=== PATIENT | female | born 1965 | race Caucasian/White ===

== ENCOUNTER 2016-11-21 20:05 | Observation (INO) ==
--- NOTE | 2016-11-21 20:15 | Emergency Department Note ---
Disposition Clinical Impression: Pyelonephritis, Failure of outpatient treatment Abdominal pain Qualifiers: Abdominal location: epigastric Qualified Code(s): R10.13 - Epigastric pain Nausea & vomiting Qualifiers: Vomiting type: unspecified Vomiting Intractability: non-intractable Qualified Code(s): R11.2 - Nausea with vomiting, unspecified Disposition: Admitted As Inpatient Condition: Good Referrals: NO,PCP [Primary Care Provider] - Forms: Work/School Release, ED Satisfaction Letter Nausea/Vomiting/Diarrhea HPI - General Chief complaint: ED Abdominal Pain Stated complaint: N/V/D Time Seen by Provider: 11/21/16 20:10 Source: patient, family Mode of arrival: private vehicle Limitations: no limitations Nursing Notes Reviewed: Yes Vital Signs Reviewed: Yes - History of Present Illness HPI Narrative: The patient states that she started feeling poorly all week ago on Wednesday. She is having some nausea and vomiting some difficulty with urination for which she went to [facility] urgent care on Wednesday. They referred her to [facility] emergency department where she had lab work, urinalysis and a CT abdomen with contrast performed. They informed her that her blood sugar was up and that she had a urinary tract infection. She is told the CT abdomen was normal. She has been taking Keflex but states that she is "not getting any better". She is continuing with nausea and vomiting and now has diarrhea that she thinks is because of the Keflex. She has not had a bladder mucus in emesis or stool. She continues with pain that is across the mid epigastric region without radiation. She also has been having pain though in the right flank for the last week. She has a feeling of fevers and chills but no chest pain, cough or shortness of breath. She notes the pain in her abdomen is worse if she does cough or when she vomits. She has not checked her blood sugar since being in the emergency department on Wednesday. She denies any history of kidney stone and the CT abdomen report in 3 days ago was negative for this. She relates she has already had a hysterectomy and an appendectomy. Pt Subjective Complaint: nausea, vomiting, diarrhea, abdominal pain Onset (ago): day(s) Description of emesis: food contents Description of Diarrhea: water Associated Abdominal Pain: Yes If pain, Location of pain: epigastric Severity: moderate Quality: aching, dull Consistency: constant Improves with: nothing Worsens with: eating, vomiting Associated symptoms: Reports: loss of appetite, malaise, nausea/vomiting, weakness. Denies: myalgias, chest pain, cough, diaphoresis, fever/chills, headaches, rash, dysuria, shortness of breath, syncope - Related Data Previous Rx's Medication Instructions Recorded Ibuprofen [Motrin] 600 mg PO Q6HR PRN #20 tab 12/02/15 cephALEXin [Keflex] 500 mg PO QID #40 capsule 12/02/15 Allergies Allergy/AdvReac Type Severity Reaction Status Date / Time hydrocodone [From Vicodin] AdvReac Hallucinati Verified 11/21/16 20:08 ng All systems ED: reviewed and negative except as stated. Past Medical History - Past Medical History Attestation: Yes The following information was validated with the patient. Source: patient, old records reviewed, nursing notes reviewed Medical history: Reports: diabetes Surgical history: Reports: appendectomy, cataract, hysterectomy, other ( Tonsillectomy) Psychiatric history: Reports: no psych history PICKER PACKER history: Reports: no PICKER PACKER history - Social History Smoking Status: Current every day smoker Smokeless Tobacco Status: No Alcohol use: Reports: rarely Drug use: Reports: none Physical Exam - General Limitations: no limitations General appearance: alert, in no apparent distress - Head Head exam: atraumatic, normocephalic, normal inspection - Eye Eye exam: Present: normal appearance, PERRL, EOMI - ENT ENT exam: normal exam, normal oropharynx, mucous membranes moist - Neck Neck exam: Present: normal inspection, full ROM, trachea midline - Chest Chest inspection: Present: normal inspection, symmetric chest wall rise - Respiratory Respiratory exam: Present: normal lung sounds bilaterally. Absent: respiratory distress, wheezes, prolonged expiratory phase - Cardiovascular Cardiovascular exam: Present: regular rate, normal rhythm, normal heart sounds. Absent: diastolic murmur - Abdominal Exam Abdominal exam: Present: soft, normal bowel sounds. Absent: distention, guarding, rebound, rigidity, Crespo's sign, tenderness at McBurney's Point, hernia Abdominal tenderness: Present: epigastrium, moderate - Extremities Exam Extremities exam: Present: normal inspection, full ROM, normal capillary refill. Absent: tenderness, pedal edema - Expanded Lower Extremity Exam Neurovascular/Tendon exam: Present: normal capillary refill. Absent: motor deficit, sensory deficit, tendon deficit Gait: observed and normal - Back Exam Back exam: Present: normal inspection, full ROM. Absent: tenderness, CVA tenderness (R), CVA tenderness (L) - Neurological Exam Neurological exam: Present: alert, oriented X3, normal gait. Absent: motor sensory deficit, reflexes normal - Psychiatric Psychiatric exam: Present: normal affect, normal mood - Skin Skin exam: Present: warm, dry, intact, normal color. Absent: rash, diaphoresis , pallor Course Course Narrative: 2049: Given the patient's persistent, significant UTI, I have spoken with [facility] emergency department to request records and the culture and sensitivities from her urine. The patient has signed for these records and we are awaiting them at this time. An appropriate antibiotic will then be to be selected and she will likely need continuation of IV fluids and antibiotics inpatient for a day or 2. 2119: Reports are reviewed from [facility]. Her CT did demonstrate "multiple wedge-shaped and rounded areas of poor enhancement within the right renal cortex. Most commonly due to underlying pyelonephritis." Her urine cultured for greater than 100,000 Escherichia coli that was pansensitive to the antibiotic panel. 2124: Care has been discussed with Dr. Keith Summers and verbal orders have been obtained for her observation to the hospital. Vital Signs Temperature 99.9 F H 11/21/16 20:12 Pulse Rate 75 11/21/16 20:12 Respiratory Rate 20 11/21/16 20:12 Blood Pressure 136/74 11/21/16 20:12 O2 Sat by Pulse Oximetry 99 11/21/16 20:12 Temperature 99.9 F H 11/21/16 20:12 Pulse Rate 68 11/21/16 21:06 Respiratory Rate 18 11/21/16 21:06 Blood Pressure 131/81 11/21/16 21:06 O2 Sat by Pulse Oximetry 99 11/21/16 21:06 Oxygen Delivery Oxygen Delivery Room Air Nausea/Vomiting/Diarrhea - Differential Diagnosis Likely: gastroenteritis (Pyelonephritis), dehydration - Lab Data Lab results reviewed: Yes I reviewed the patient's lab results. Result diagrams: 11/21/16 20:33 11/21/16 20:33 Lab Results 11/21/16 11/21/16 11/21/16 Range/Units 20:29 20:33 20:33 WBC 13.6 H (4.3-11.1) K/mcL RBC 4.13 (3.82-4.97) M/mcL Hgb 12.7 (11.5-15.4) g/dL Hct 36.3 (35.3-44.9) % MCV 87.9 (83.0-100.0) fL MCH 30.8 (28.0-33.3) pg MCHC 35.0 (31.6-35.5) g/dL RDW 12.7 (11.5-14.5) % Plt Count 281 (140-400) K/mcL MPV 10.0 (9.4-12.4) fL Immature Gran % 3.5 (0-4) % Seg Neutrophils % 73.9 % Lymphocytes % 13.0 % Monocytes % 8.8 % Eosinophils % 0.4 % Basophils % 0.4 % Neutrophils # 10.1 H (1.6-8.9) K/mcL Lymphocytes # 1.8 (0.6-4.6) K/mcL Monocytes # 1.2 (0.0-1.3) K/mcL Eosinophils # 0.1 (0.0-0.6) K/mcL Basophils # 0.1 (0.0-0.2) K/mcL Platelet Estimate Normal (Normal) Sodium 138 (136-145) mEq/L Potassium 3.4 L (3.5-4.5) mEq/L Chloride 105 (98-109) mEq/L Carbon Dioxide 21 (19-29) mEq/L BUN 13 (7-20) mg/dL Creatinine 0.72 (0.57-1.11) mg/dL Est GFR ( Amer) > 60 (> 60) Est GFR (Non-Af Amer) > 60 (> 60) BUN/Creatinine Ratio 18 (6-26) Glucose 246 H (70-99) mg/dL Calculated Osmolality 294 (280-300) Calcium 9.2 (8.6-10.8) mg/dL Total Bilirubin 0.5 (0.2-1.2) mg/dL Direct Bilirubin 0.2 (0.0-0.5) mg/dL Indirect Bilirubin 0.3 (0.0-1.2) mg/dL AST 11 (5-34) Units/L ALT 16 (0-55) Units/L Alkaline Phosphatase 106 (38-126) Units/L Serum Total Protein 6.5 (6.0-8.3) g/dL Albumin 2.1 L (3.5-5.0) g/dL Globulin 4.4 H (2.4-3.5) g/dL Albumin/Globulin Ratio 0.5 L (1.1-2.2) Amylase 25 (25-125) Units/L Lipase 15 (8-78) Units/L Urine Color Yellow (Yellow) Urine Clarity Cloudy A (Clear) Urine pH 6.0 (5.0-8.0) pH Units Ur Specific [place] 1.015 (1.010-1.025) Urine Protein 30 H (Neg-Trace) mg/dL Urine Glucose (UA) >=1000 H (Normal) mg/dL Urine Ketones Trace H (Negative) mg/dL Urine Blood Large H (Negative) Urine Nitrite Negative (Negative) Urine Bilirubin Negative (Negative) Urine Urobilinogen 2.0 H (Normal) mg/dL Ur Leukocyte Esterase Small H (Negative) Urine Microscopic RBC 5-15 H (0-3) per hpf Urine Microscopic WBC 50-100 H (0-3) per hpf Ur Squamous Epith Cells Few (None-Few) per lpf Urine Bacteria Few (None-Few) per hpf Urine Yeast Few H (None Seen) per hpf Ur Culture Indicated? YES A (NO)
[2016-11-21] MEDS ORDERED: Ondansetron 4 MG/2 ML VIAL IVP ONE (20:18)
[2016-11-21] MEDS ORDERED: 0.9 % Sodium Chloride 1,000 ML IVC ONE (20:19)
[2016-11-21 20:34] LABS: Bilirubin,Urine Negative (Negative); Blood,Urine Large (Negative); Clarity,Urine Cloudy (Clear); Color,Urine Yellow (Yellow); Glucose,Urine (UA) >=1000 mg/dL (Normal); Ketones,Urine Trace mg/dL (Negative); Leukocyte Esterase,Urine Small (Negative); Nitrite,Urine Negative (Negative); Protein,Urine 30 mg/dL (Neg-Trace); Specific Gravity,Urine 1.015 (1.010-1.025)
[2016-11-21 20:42] LABS: Basophils # 0.1 K/mcL (0.0-0.2); Basophils % 0.4 %; Eosinophils # 0.1 K/mcL (0.0-0.6); Eosinophils % 0.4 %; Hematocrit 36.3 % (35.3-44.9); Hemoglobin 12.7 g/dL (11.5-15.4); Immature Granulocytes % 3.5 % (0-4); Lymphocytes # 1.8 K/mcL (0.6-4.6); Mean Corpuscular Hemoglobin 30.8 pg (28.0-33.3); Mean Corpuscular Volume 87.9 fL (83.0-100.0); Monocytes # 1.2 K/mcL (0.0-1.3); Monocytes % 8.8 %; Platelet Count 281 K/mcL (140-400); Red Blood Count 4.13 M/mcL (3.82-4.97); Red Cell Distribution Width 12.7 % (11.5-14.5); Segmented Neutrophils % 73.9 %
[2016-11-21 20:42] LABS: Squamous Epithelial Cell,Urine Few per lpf (None-Few); WBC,Urine 50-100 per hpf (0-3)
[2016-11-21 20:43] LABS: Bacteria,Urine Few per hpf (None-Few); Yeast,Urine Few per hpf (None Seen)
[2016-11-21 20:55] LABS: Neutrophils # 10.1 K/mcL (1.6-8.9)
[2016-11-21 20:58] LABS: Platelet Estimate Normal (Normal)
[2016-11-21 21:00] LABS: Alanine Aminotransferase 16 Units/L (0-55); Albumin 2.1 g/dL (3.5-5.0); Albumin/Globulin Ratio 0.5 (1.1-2.2); Alkaline Phosphatase 106 Units/L (38-126); Amylase 25 Units/L (25-125); Aspartate Amino Transferase 11 Units/L (5-34); BUN/Creatinine Ratio 18 (6-26); Bilirubin,Direct 0.2 mg/dL (0.0-0.5); Bilirubin,Indirect 0.3 mg/dL (0.0-1.2); Bilirubin,Total 0.5 mg/dL (0.2-1.2); Blood Urea Nitrogen 13 mg/dL (7-20); Calcium 9.2 mg/dL (8.6-10.8); Carbon Dioxide 21 mEq/L (19-29); Chloride 105 mEq/L (98-109); Globulin 4.4 g/dL (2.4-3.5); Glucose 246 mg/dL (70-99); Lipase 15 Units/L (8-78); Osmolality,Calculated 294 (280-300); Potassium 3.4 mEq/L (3.5-4.5); Sodium 138 mEq/L (136-145); Total Protein 6.5 g/dL (6.0-8.3); eGFR For African Americans > 60 (> 60); eGFR For Non-African Americans > 60 (> 60)
[2016-11-21] MEDS ORDERED: Naloxone 0.4 MG/ML INJ IVP PRN (22:14)
[2016-11-21] MEDS ORDERED: MOM Conc 10 ML UD.LIQ PO PRN (22:14)
[2016-11-21] MEDS ORDERED: Acetaminophen 325 MG TABLET PO PRN (22:14)
[2016-11-21] MEDS ORDERED: Ondansetron 4 MG/2 ML VIAL IVP PRN (22:14)
[2016-11-21] MEDS ORDERED: *HR* HYDROmorphone (PF) 1 MG/ML SYRINGE IVP PRN (22:14)
[2016-11-21] MEDS ORDERED: D5% in Water 1,000 ML IVC PRN (23:20)
[2016-11-21] MEDS ORDERED: Dextrose Gel 15 GM PO PRN ×2 (23:20)
[2016-11-21] MEDS ORDERED: *HR* Dextrose 50 % in Water (Syg) 50 ML SYRINGE IVP PRN (23:20)
[2016-11-21] MEDS: 0.9 % Sodium Chloride 1,000 ML IVC SCH (23:35)
[2016-11-22 05:22] LABS: Basophils # 0.1 K/mcL (0.0-0.2); Basophils % 0.4 %; Eosinophils # 0.1 K/mcL (0.0-0.6); Eosinophils % 0.7 %; Hemoglobin 11.9 g/dL (11.5-15.4); Immature Granulocytes % 2.6 % (0-4); Lymphocytes # 1.7 K/mcL (0.6-4.6); Lymphocytes % 12.7 %; Mean Corpuscular Hemoglobin 30.5 pg (28.0-33.3); Mean Corpuscular Volume 89.7 fL (83.0-100.0); Mean Platelet Volume 10.3 fL (9.4-12.4); Monocytes # 1.1 K/mcL (0.0-1.3); Monocytes % 8.2 %; Platelet Count 283 K/mcL (140-400); Red Cell Distribution Width 12.9 % (11.5-14.5); Segmented Neutrophils % 75.4 %
[2016-11-22 05:46] LABS: BUN/Creatinine Ratio 15 (6-26); Blood Urea Nitrogen 12 mg/dL (7-20); Calcium 8.8 mg/dL (8.6-10.8); Carbon Dioxide 22 mEq/L (19-29); Chloride 104 mEq/L (98-109); Glucose 407 mg/dL (70-99); Osmolality,Calculated 301 (280-300); Phosphorous 2.9 mg/dL (2.3-4.7); Potassium 3.3 mEq/L (3.5-4.5); Sodium 137 mEq/L (136-145); eGFR For African Americans > 60 (> 60); eGFR For Non-African Americans > 60 (> 60)
[2016-11-22 06:03] LABS: Albumin 1.9 g/dL (3.5-5.0)
[2016-11-22 06:09] LABS: Platelet Estimate Normal (Normal)
[2016-11-22] MEDS: Insulin LISPRO 300 UNITS/3 ML VIAL SQ SCH ×4 (07:42→22:44)
--- NOTE | 2016-11-22 09:01 | Internal Med History&Physical ---
Date of Encounter: 11/22/16 Time of Encounter: 08:58 Assessment and Plan (1) Pyelonephritis due to Escherichia coli Current visit: Yes Status: Acute E. coli pyelonephritis documented by outside CT scan and urine cultures obtained at [facility] ER. Pt remains moderately symptomatic and unsuitable for outpatient management at this time. Will continue IV fluids, anti-emetics and IV ceftriaxone at this time. Urine culture is pending. (2) Type II diabetes mellitus Current visit: Yes Status: Acute Poor control at baseline. Will avoid MENDEZ and metformin for now given nausea, vomiting and poor po intake. Will schedule on basal insulin and continue sliding scale coverage. Will order hgbA1c. Pt will need to arrange PCP at discharge for ongoing treatment of her uncontrolled DM. Qualifiers: Diabetes mellitus complication status: without complication Diabetes mellitus fci insulin use: without terminal gauger use Qualified Code(s): E11.9 - Type 2 diabetes mellitus without complications Internal Medicine - H&P: HPI Chief complaint: Nausea, abdominal pain Admitted From: Emergency Dept Plans for Post Hospital Care: Home History of present illness: Ms. Reeves is a 51 year old female with PMH significant for uncontrolled type II diabetes mellitus and currently with no PCP that presented to ER with 1 week history of abdominal pain and nausea. Pt was seen at [facility] urgent care and then [facility] urgent care 4 days ago and placed on cephalexin for a jin-sensitive E. Coli pyelonephritis documented by CT scan and urine culture. Pt notes continued nausea and R flank pain without any improvement in symptoms. She then presented to ER for re-evaluation. She was treated with IV ceftriaxone and IV fluids. Urine sent for culture. Pt then admitted for ongoing treatment of pyelonephritis. Upon evaluation this morning, pt continues to report abdominal and right flank pain with intermittent chills, nausea and vomiting. She is having trouble keeping down po. She feels fatigued and tired. FSBG has been elevated throughout the night. Past Med Surg Social Fam HX - Past Medical History Medical history: diabetes Psychiatric history: no psych history - Past Surgical History Surgical History: appendectomy, cataract, hysterectomy, other - Social History Smoking Status: Current every day smoker Smokeless Tobacco Status: No Alcohol use: rarely Drug use: none Internal Medicine - H&P: Meds Ibuprofen [Motrin] 600 mg PO Q6HR PRN #20 tab 12/02/15 [Rx] cephALEXin [Keflex] 500 mg PO QID #40 capsule 12/02/15 [Rx] Allergies hydrocodone [From Vicodin] Adverse Reaction (Verified 11/21/16 20:08) Hallucinating All Systems PM: A 10-system review of systems was performed and is negative for pertinent findings except as documented above in the HPI. - Constitutional Vitals: Temp Pulse Resp BP Pulse Ox 98.8 F 72 16 136/74 97 11/22/16 06:18 11/22/16 06:18 11/22/16 06:18 11/22/16 06:18 11/22/16 06:18 Exam: Gen: Lying in bed, NAD HEENT: NC, AT Neck: Trachea midline, no mass Pulm: No respiratory distress, CTAB CV: Normal S1 and S2, RRR Abdomen: Soft, ND, + generalized tenderness throughout without rebound or guarding, + R CVA tenderness Ext: No C/C/E Neuro: No appreciable motor/sensor deficits Skin: Warm and dry, no rash Psych: A&Ox3 Internal Med - H&P Results - Labs CBC & Chem 7: 11/22/16 05:00 11/22/16 05:00 Labs: Short CBC 11/22/16 Range/Units 05:00 WBC 13.2 H (4.3-11.1) K/mcL Hgb 11.9 (11.5-15.4) g/dL Hct 35.0 L (35.3-44.9) % Plt Count 283 (140-400) K/mcL Neutrophils # 10.0 H (1.6-8.9) K/mcL BMP 11/22/16 05:00 Sodium 137 Potassium 3.3 L Chloride 104 Carbon Dioxide 22 BUN 12 Creatinine 0.79 Glucose 407 H Calcium 8.8 Liver Function 11/22/16 Range/Units 05:00 Albumin 1.9 L (3.5-5.0) g/dL
[2016-11-22] MEDS ORDERED: Insulin NPH 100 UNIT/ML (x5UNIT) SQ ONE (09:16)
[2016-11-22] MEDS: 0.9 % Sodium Chloride 1,000 ML IVC SCH ×2 (09:41→18:23)
[2016-11-22] MEDS: *HR* Morphine 2 MG/ML SYRINGE IVP PRN ×4 (09:43→22:43)
[2016-11-22] MEDS ORDERED: Ondansetron 4 MG/2 ML VIAL IVP SCH (16:00)
[2016-11-22] MEDS: Ondansetron 4 MG/2 ML VIAL IVP PRN (16:11)
[2016-11-22] MEDS: Lactobacillus 1 EACH CAP.SPRINK PO SCH (22:39)
[2016-11-22] MEDS: Insulin DETEMIR 100 UNIT/ML X5UNITS SQ SCH (22:40)
[2016-11-23] MEDS: Ondansetron 4 MG/2 ML VIAL IVP PRN (05:03)
[2016-11-23] MEDS: 0.9 % Sodium Chloride 1,000 ML IVC SCH ×2 (05:07→12:40)
[2016-11-23 06:42] LABS: Basophils % 0.2 %; Eosinophils # 0.1 K/mcL (0.0-0.6); Eosinophils % 0.8 %; Hematocrit 31.8 % (35.3-44.9); Hemoglobin 10.7 g/dL (11.5-15.4); Immature Granulocytes % 2.7 % (0-4); Lymphocytes # 1.6 K/mcL (0.6-4.6); Lymphocytes % 12.1 %; Mean Corpuscular HGB Conc 33.6 g/dL (31.6-35.5); Mean Corpuscular Hemoglobin 30.6 pg (28.0-33.3); Mean Corpuscular Volume 90.9 fL (83.0-100.0); Mean Platelet Volume 9.9 fL (9.4-12.4); Monocytes # 0.9 K/mcL (0.0-1.3); Monocytes % 6.8 %; Neutrophils # 10.1 K/mcL (1.6-8.9); Platelet Count 322 K/mcL (140-400); Red Cell Distribution Width 13.1 % (11.5-14.5); Segmented Neutrophils % 77.4 %
[2016-11-23 06:59] LABS: BUN/Creatinine Ratio 13 (6-26); Blood Urea Nitrogen 9 mg/dL (7-20); Calcium 8.4 mg/dL (8.6-10.8); Carbon Dioxide 21 mEq/L (19-29); Chloride 109 mEq/L (98-109); Glucose 195 mg/dL (70-99); Osmolality,Calculated 296 (280-300); Phosphorous 2.5 mg/dL (2.3-4.7); Potassium 3.3 mEq/L (3.5-4.5); Sodium 141 mEq/L (136-145); eGFR For African Americans > 60 (> 60); eGFR For Non-African Americans > 60 (> 60)
[2016-11-23 07:03] LABS: Albumin 1.7 g/dL (3.5-5.0)
[2016-11-23] MEDS: Insulin LISPRO 300 UNITS/3 ML VIAL SQ SCH ×3 (07:39→16:54)
[2016-11-23] MEDS: *HR* Morphine 2 MG/ML SYRINGE IVP PRN ×3 (07:44→21:22)
[2016-11-23 09:49] LABS: Hemoglobin A1C 11.6 %
[2016-11-23] MEDS: Lactobacillus 1 EACH CAP.SPRINK PO SCH ×2 (11:45→21:08)
--- NOTE | 2016-11-23 12:29 | Internal Med Progress Note ---
Date of Encounter: 11/23/16 Time of Encounter: 12:20 - Assessment and plan (1) Pyelonephritis due to Escherichia coli Current Visit: Yes Status: Acute Assessment and plan: November 23. Continue IV Rocephin with lactobacillus. (2) Type II diabetes mellitus Current Visit: Yes Status: Chronic Assessment and plan: November 23. We will start oral agent. She had adverse reaction felt to be due to metformin previously. Qualifiers: Diabetes mellitus complication status: without complication Diabetes mellitus healthcare sales representative insulin use: without alf use Qualified Code(s): E11.9 - Type 2 diabetes mellitus without complications - Subjective Interval history: November 23. She has no new complaints and feels slightly better. She ate lunch and does not feel nauseated at this time. - Constitutional Vitals: Temp Pulse Resp BP Pulse Ox 98.8 F 72 17 134/77 95 11/23/16 10:11 11/23/16 10:11 11/23/16 10:11 11/23/16 10:11 11/23/16 10:11 Exam: She is resting comfortably in bed and appears in no acute distress. Her affect is bright and cheerful. I reviewed her medications and lab results. Internal Medicine: Result - Labs CBC & Chem 7: 11/23/16 06:08 11/23/16 06:08 Labs: Short CBC 11/23/16 Range/Units 06:08 WBC 13.0 H (4.3-11.1) K/mcL Hgb 10.7 L (11.5-15.4) g/dL Hct 31.8 L (35.3-44.9) % Plt Count 322 (140-400) K/mcL Neutrophils # 10.1 H (1.6-8.9) K/mcL BMP 11/23/16 06:08 Sodium 141 Potassium 3.3 L Chloride 109 Carbon Dioxide 21 BUN 9 Creatinine 0.69 Glucose 195 H Calcium 8.4 L Liver Function 11/23/16 Range/Units 06:08 Albumin 1.7 L (3.5-5.0) g/dL Consult Discharge Plan - Plan Referrals: NO,PCP [Primary Care Provider] - 1 week
[2016-11-23] MEDS: Insulin DETEMIR 100 UNIT/ML X5UNITS SQ SCH (21:08)
[2016-11-24] MEDS: Insulin LISPRO 300 UNITS/3 ML VIAL SQ SCH ×3 (02:07→12:03)
[2016-11-24] MEDS: *HR* Morphine 2 MG/ML SYRINGE IVP PRN (04:19)
[2016-11-24 04:36] LABS: Basophils % 0.3 %; Eosinophils # 0.2 K/mcL (0.0-0.6); Eosinophils % 1.4 %; Hematocrit 30.8 % (35.3-44.9); Hemoglobin 10.5 g/dL (11.5-15.4); Lymphocytes % 15.5 %; Mean Corpuscular HGB Conc 34.1 g/dL (31.6-35.5); Mean Corpuscular Hemoglobin 30.6 pg (28.0-33.3); Mean Corpuscular Volume 89.8 fL (83.0-100.0); Mean Platelet Volume 9.6 fL (9.4-12.4); Monocytes # 0.7 K/mcL (0.0-1.3); Monocytes % 6.1 %; Neutrophils # 8.8 K/mcL (1.6-8.9); Platelet Count 327 K/mcL (140-400); Red Blood Count 3.43 M/mcL (3.82-4.97); Red Cell Distribution Width 12.8 % (11.5-14.5); Segmented Neutrophils % 73.7 %
[2016-11-24 04:50] LABS: Lymphocytes # 1.8 K/mcL (0.6-4.6)
[2016-11-24 06:43] VITALS: BP 161/76
[2016-11-24] MEDS: Lactobacillus 1 EACH CAP.SPRINK PO SCH (07:52)
--- NOTE | 2016-11-24 10:55 | Discharge Summary ---
Date of Encounter: 11/24/16 Time of Encounter: 10:45 - Discharge Diagnosis (1) Pyelonephritis due to Escherichia coli Priority: Primary Status: Acute (2) Type II diabetes mellitus Priority: Secondary Status: Chronic Qualifiers: Diabetes mellitus complication status: without complication Diabetes mellitus superintendent container terminal insulin use: without superintendent container terminal use Qualified Code(s): E11.9 - Type 2 diabetes mellitus without complications - Discharge Medications Prescriptions: Glimepiride [Amaryl] 2 mg PO 0800 #30 tab Lactobacillus [Culturelle] 1 each PO BID #6 Sulfamethoxazole/Trimeth DS [Bactrim DS] 1 each PO BID #6 tablet Home Medications: Ibuprofen [Motrin] 600 mg PO Q6HR PRN #20 tab 12/02/15 [Rx] Glimepiride [Amaryl] 2 mg PO 0800 #30 tab 11/24/16 [Rx] Lactobacillus [Culturelle] 1 each PO BID #6 11/24/16 [Rx] Sulfamethoxazole/Trimeth DS [Bactrim DS] 1 each PO BID #6 tablet 11/24/16 [Rx] Allergies/Adverse Reactions: Allergies hydrocodone [From Vicodin] Adverse Reaction (Verified 11/21/16 20:08) Hallucinating Date of admission: 11/21/16 21:44 Primary care physician: PCP NO Consults: 11/21/16 22:36 Consult to Nutrition [CONS] Routine Comment: Consulting Provider: NUTRITION Reason for Dietary Consult: MST Score - Patient Status Disposition: Home, Self-Care Condition: Good Functional capacity at discharge: independent ambulation Overall status at discharge: patient is progressing back to baseline - Discharge Instructions Follow Up With: NO,PCP [Primary Care Provider] - 1 week - Diet and Activity Activity: resume usual activities as tolerated Diet: diabetic diet Hospital course: Ms. Reeves is a 51 year old female who presented to the emergency room November 21 with vomiting and weakness. She was felt to have pyelonephritis and was admitted to [facility]. Initial orders were written by the emergency room physician. Dr. Keith Summers saw her November 22 and performed a history and physical. I assumed her care oversight on November 23. She was placed on IV Rocephin empirically. Urine culture returned showing no growth. She remained afebrile. WBC improved to 11.9 with no left shift on differential. She will continue with Septra DS twice a day and lactobacillus for 3 days after discharge. Hemoglobin A1c returned elevated at 11.6 %. I started her on Amaryl and her blood sugars returned to satisfactory range by day of discharge. She will continue on Amaryl at discharge without basal or sliding scale insulin at this time. She was instructed to check her blood sugars regularly and take results to her PCP. She had mild hypokalemia, presumably from vomiting. Her vomiting essentially resolved by discharge and labs can be followed as an outpatient. On November 24 she felt stable for discharge home. She will follow at [facility] with a PCP within one week. - Time Spent with Patient Total time spent providing and/or coordinating discharge services: - Constitutional Vitals: Temp Pulse Resp BP Pulse Ox 98.8 F 68 16 161/76 93 11/24/16 06:43 11/24/16 06:43 11/24/16 06:43 11/24/16 06:43 11/24/16 06:43
[2016-11-24 12:32] LABS: % Iron Saturation 17 % (15-50); Iron 26 mcg/dL (50-170); Transferrin 108 mg/dL (180-382)
[2016-11-24] MEDS ORDERED: *HR* Glimepiride 2 MG TABLET PO SCH (12:32)
[2016-11-24 12:47] LABS: Ferritin 752 ng/ml (5-204)
[2016-11-24 12:59] LABS: Folate 10.2 ng/mL (7.0-31.4)
== END 2016-11-24 12:41 | disposition home or self-care (01) ==
LOC: INPPIK 20:05 → EMEROOPIK 20:05 → INPPIK 22:10
PROVIDERS: ADMIT Emergency Medicine; ATTEND Internal Medicine